=== PATIENT | female | born 1980 | race Caucasian/White ===

== ENCOUNTER 2018-10-12 03:04 | Emergency (ER) | payer OTHER ==
[~2018-10-12] VITALS: Ht 167.6 cm; Wt 65.9 kg
[2018-10-12] MEDS ORDERED: ondansetron/PF 4mg/2ml inj IV ONE (03:25)
[2018-10-12] MEDS ORDERED: normal saline 1000ML IV soln IVB ONE (03:25)
[2018-10-12] MEDS ORDERED: dicyclomine 10mg/ml 2ml ampule IM ONE (03:25)
[2018-10-12] MEDS: morphine 4 MG/ML inj SYRINge IV PRN ×2 (03:40→06:07)
[2018-10-12 03:58] LABS: BASOPHILS % (AUTO) 0.2 % (0-1); EOSINOPHILS # (AUTO) 0.1 X10'3 (0-0.9); EOSINOPHILS % (AUTO) 1.4 % (0-6); HEMATOCRIT 38.4 % (35.0-45.0); HEMOGLOBIN 13.6 g/dl (12.0-16.0); LYMPHOCYTES # (AUTO) 1.3 X10'3 (1.1-4.8); MEAN CORPUSCULAR HGB CONC 35.3 g/dL (33.0-36.5); MEAN CORPUSCULAR VOLUME 87.7 FL (78-98); MEAN PLATELET VOLUME 8.9 FL (7.4-10.4); MONOCYTES % (AUTO) 11.2 % (2-12); NEUTROPHILS # (AUTO) 6.2 X10'3 (1.8-7.7); NEUTROPHILS % (AUTO) 72.2 % (42-75); PLATELET COUNT 238 X10'3 (140-440); RED BLOOD COUNT 4.37 X10'6 (4.20-5.60); RED CELL DISTRIBUTION WIDTH 13.1 % (11.5-14.5); WHITE BLOOD COUNT 8.6 X10'3 (4.5-11.0)
[2018-10-12 04:06] LABS: ALANINE AMINOTRANSFERASE 17 U/L (12-78); ALBUMIN 3.1 G/DL (3.4-5.0); ALBUMIN/GLOBULIN RATIO 0.9 (1.1-1.5); ALKALINE PHOSPHATASE 42 IU/L (46-116); ANION GAP 7 (8-16); ASPARTATE AMINO TRANSFERASE 11 U/L (10-37); BILIRUBIN,TOTAL 0.5 MG/DL (0.1-1.0); BLOOD UREA NITROGEN 5 MG/DL (7-18); BUN/CREATININE RATIO 6.4 (6.6-38.0); CALCIUM 8.4 MG/DL (8.5-10.1); CHLORIDE 103 MMOL/L (99-107); CREATININE 0.78 MG/DL (0.40-0.90); GLUCOSE 111 MG/DL (70-104); LIPASE 106 U/L (73-393); POTASSIUM 3.5 MMOL/L (3.5-5.1); SODIUM 136 MMOL/L (135-145); TOTAL CARBON DIOXIDE 25.9 MMOL/L (24-32); TOTAL PROTEIN 6.4 G/DL (6.4-8.2); eGFR 82 ML/MIN
--- NOTE | 2018-10-12 04:11 | NUR ---
She is asleep.
[2018-10-12] MEDS ORDERED: normal saline 1000ml 1,000 ML IVB ONE (04:55)
--- NOTE | 2018-10-12 04:56 | NUR ---
No UOP, another liter of NS started per Dr. Miller approval and so ordered. Pt feeling a little better, decrease in cramping and pain.
[2018-10-12] MEDS ORDERED: ONDA4TAB12 PO (05:14)
[2018-10-12] MEDS ORDERED: ACET-3067 PO (05:14)
[2018-10-12] MEDS ORDERED: DICY10CA88 PO (05:14)
[2018-10-12] MEDS ORDERED: CIPR-230 PO (05:14)
--- NOTE | 2018-10-12 05:30 | NUR ---
Pt got up to use the BR to void. She is feeling better, encouraged her to rest until 0600.
[2018-10-12 06:08] VITALS: BP 94/57
== END 2018-10-12 06:12 | disposition home or self-care (01) ==
LOC: EEVIPCON 03:04 → ER 03:04
DX: K92.1 Melena (principal); Z90.710 Acquired absence of both cervix and uterus; Z88.2 Allergy status to sulfonamides; Z88.1 Allergy status to other antibiotic agents; Z79.899 Other long term (current) drug therapy
CPT/HCPCS: 36415; 80053; 83690; 85025; 96361; 96372; 96374; 96375; 96376; 99283; J0500; J2270; J2405; J7030

== ENCOUNTER 2020-03-03 04:09 | Emergency (ER) | payer BC, OTHER ==
[~2020-03-03] VITALS: Ht 165.1 cm; Wt 63.6 kg
[~2020-03-03 04:09] MED LIST: ONDA4TAB12 PO
[2020-03-03 04:11] VITALS: BP 131/64
[2020-03-03 05:04] LABS: D-DIMER < 0.19 MG/L FEU (0-0.50)
== END 2020-03-03 05:32 | disposition home or self-care (01) ==
LOC: ER 04:10
DX: M79.622 Pain in left upper arm (principal); Z90.710 Acquired absence of both cervix and uterus; Z88.2 Allergy status to sulfonamides; Z88.0 Allergy status to penicillin; Z79.899 Other long term (current) drug therapy
CPT/HCPCS: 36415; 85379; 99283